=== PATIENT | male | born 1985 | race Caucasian/White ===

== ENCOUNTER 2021-05-07 20:16 | Inpatient (IN) | payer OTHER ==
[~2021-05-07] VITALS: Ht 180.3 cm; Wt 102.1 kg
[~2021-05-07 20:16] MED LIST: IBUPROFEN 200200 M1 PO; NAPROSYN500 MG PO; TRAMADOL 50 MG50 MG PO
[2021-05-07 20:29] VITALS: BP 147/93
[2021-05-07] MEDS ORDERED: DESYREL150 MG PO (20:32)
[2021-05-07] MEDS ORDERED: SERTRALINE HCL100 MG PO (20:32)
[2021-05-07 20:49] LABS: ABSOLUTE BASOPHILS 0.1 thou/uL (0.0-0.2); ABSOLUTE EOSINOPHILS 0.6 thou/uL (0.0-0.7); ABSOLUTE LYMPHOCYTES 2.4 thou/uL (0.8-5.3); ABSOLUTE MONOCYTES 1.5 thou/uL (0.0-1.2); ABSOLUTE NEUTROPHILS 13.7 thou/uL (1.6-8.1); BASOPHILS 0.4 %; EOSINOPHILS 3.3 %; HEMATOCRIT 52.1 % (42.0-52.0); HEMOGLOBIN 17.7 gm/dL (14.0-18.0); MCH 28.5 pg (26.0-34.0); MCV 83.7 fL (80.0-100.0); MONOCYTES 8.2 %; MPV 6.7 fl. (7.2-11.1); NUCLEATED RBCS 0 /100WBC; PLATELET COUNT* 335 thou/uL (150-400); POLYS 75.1 %; RBC 6.23 mil/uL (4.50-6.00); RDW-CV 13.7 % (10.5-14.5); WBC 18.3 thou/uL (4.0-11.0)
[2021-05-07 21:17] LABS: CALCIUM 9.5 mg/dL (8.5-10.1); CREATININE 0.8 mg/dL (0.6-1.3); POTASSIUM 3.6 mmol/L (3.5-5.1)
[2021-05-07 21:22] LABS: ALBUMIN 4.8 g/dL (3.4-5.0); TOTAL BILIRUBIN 0.8 mg/dL (<0.1-1.0); TOTAL PROTEIN 8.8 g/dL (6.4-8.2)
[2021-05-08 01:17] VITALS: BP 142/83
[2021-05-08 05:11] VITALS: BP 138/75
[2021-05-08] MEDS ORDERED: BUSPIRONE HCL10 MG PO (08:09)
[2021-05-08] MEDS ORDERED: SERTRALINE HCL100 MG PO (08:10)
--- NOTE | 2021-05-08 08:36 | EKG ---
[place] [address] ELECTROCARDIOGRAM REPORT Name: EB GARCIA Baljinder Room: [place] [address] ADM IN [facility]#: [id number] Admission: 05/07/21 Attend Phys: Jennifer Dolan, Discharge: Date of : 89 Date of Service: 05/07/212022 Report #: [id number] THIS REPORT FOR: //name// [facility] ED Test Date: 2021-05-07 Test Time: 20:23:24 Pat Name: EB GARCIA Department: Room: [facility] Gender: M Schedule Clerk: JEROME : 1985 Requested By: Aden Saavedra Order Number: [id number] MD: Iker Richardson Measurements Intervals [place] Rate: 113 P: 81 IA: 135 QRS: 79 QRSD: 99 T: 27 QT: 349 QTc: 479 Interpretive Statements Sinus tachycardia Right atrial enlargement Borderline repolarization abnormality Borderline prolonged QT interval Baseline wander in lead(s) V4 No previous ECG available for comparison Electronically Signed On 05-08-2021 8:36:11 PSYCHOMETRIST by Iker Richardson [email or web address] <ELECTRONICALLY SIGNED> By: Iker Richardson MD, FAC 05/08/21835 22 22 Iker Richardson MD, [facility] /EPI
[2021-05-08 09:25] VITALS: BP 144/79
[2021-05-08 10:00] LABS: URINE BILIRUBIN NEGATIVE (Negative); URINE BLOOD NEGATIVE (Negative); URINE CLARITY CLEAR; URINE COLOR DARK YELLOW; URINE GLUCOSE-RANDOM NEGATIVE (Negative); URINE KETONES NEGATIVE (Negative); URINE LEUKOCYTES NEGATIVE (Negative); URINE NITRITE NEGATIVE (Negative); URINE PROTEIN TRACE (Negative); URINE SPECIFIC GRAVITY >= 1.030 (1.005-1.030); URINE UROBILINOGEN 0.2 E.U./dl (0.2-1.0)
--- NOTE | 2021-05-08 10:25 | NUR ---
Pt is admitted to the hospital on 05/07/21 with Covid 19/Respiratory Failure. Called pt's cell phone and spoke with pt to complete assessment. Pt lives with his Basil, in an apartment. Pt was independent in ADL's and Mobility. No hx of HH, DME, or SNF. [facility]. [facility] but he has not seen them as it has been switched 3 times in the last year. Pt reports when he was active in the he signed DPOA paperwork nominating his - but is not sure where this paperwork is. Discussed asking to look so we can have a copy on the chart. CM to continue to follow for discharge planning.
[2021-05-08] MEDS ORDERED: ASA81BEC PO (13:51)
[2021-05-08] MEDS ORDERED: DOXYCYCLINE 10100 MG PO (13:51)
[2021-05-08] MEDS ORDERED: DEXAMETHASONE1 MG PO (13:51)
[2021-05-08] MEDS ORDERED: ADVAIR 250-501 EACH INH (13:51)
[2021-05-08 14:18] VITALS: BP 144/79
[2021-05-08 14:38] VITALS: BP 144/79
== END 2021-05-08 14:37 | disposition home or self-care (01) | DRG 177 ==
LOC: M.ERS 20:16 → M.TBA-ER 21:33
PROVIDERS: Physician Assistant; ADMIT Internal Medicine; ATTEND Internal Medicine
DX: U07.1 COVID-19 (principal); J96.01 Acute respiratory failure with hypoxia; J12.82 Pneumonia due to coronavirus disease 2019; F32.9 Major depressive disorder, single episode, unspecified; Z82.49 Family history of ischemic heart disease and other diseases of the circulatory system